=== PATIENT | male | born 1995 | race Caucasian/White ===

== ENCOUNTER 2021-11-07 11:00 | Outpatient (CLI) | payer BC, SELFPAY ==
--- NOTE | ~2021-11-07 | US_ITS ---
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 TECHNIQUE: Testicular sonogram utilizing grayscale and Doppler COMPARISON: None. FINDINGS: The right testis measures 4.3 x 3.0 x 2.2 cm. The left testis measures 3.8 x 2.8 x 2.2 cm. Symmetric normal grayscale appearance to both testes. There is normal vascular flow to both testes. 6 mm periph erally calcified shadowing scrotal pia along side the right testis. The right epididymis is normal with normal vascular flow. The left epididymis is normal with normal vascular flow. There is no varic ocele or hydrocele. IMPRESSION: 1. 6 mm calcified scrotal pia along side the right testis. Otherwise normal scrotal ultrasound. Reviewed, dictated and finalized at location A.
== END 2021-11-07 11:01 | disposition home or self-care (01) ==
PROVIDERS: PCP Pediatrics; Visit Provider Urology
DX: N44.1 Cyst of tunica albuginea testis (principal); N50.9 Disorder of male genital organs, unspecified
CPT/HCPCS: 76870; 93976